=== PATIENT | female | born 1970 | race Caucasian/White ===

== ENCOUNTER → 2016-08-28 | Outpatient (CLI) | payer BC ==
--- NOTE | 2016-08-28 11:29 | DIAGNOSTIC IMAGING REPORT ---
LEFT HIP 2 VIEWS HISTORY: LEFT HIP PAIN AFTER RUNNING COMPARISON: None. FINDINGS: There is no fracture or dislocation. Soft tissues are unremarkable. No radiopaque foreign bodies. The visualized pelvic bones are intact. The left hip cartilage spaces maintained. Small calcification at the attachment of the distal gluteus medius tendon. IMPRESSION: No fracture or dislocation within the left hip. Electronically signed by: Eric Shaver M.D. 08/28/2016 11:27 AM Dictated Date/Time: 08/28/2016 11:27 AM
== END | disposition home or self-care (01) ==
LOC: C.RDSM 10:33
PROVIDERS: ATTEND Internal Medicine
DX: M25.552 Pain in left hip (principal)